=== PATIENT | male | born 1965 | race Caucasian/White ===

== ENCOUNTER 2017-05-21 07:25 | Emergency (ER) | payer OTHER ==
[~2017-05-21] VITALS: Ht 165.1 cm; Wt 100.0 kg
[2017-05-21 07:32] VITALS: BP 126/91
[2017-05-21] MEDS ORDERED: IBUPROFEN 600MG TABLET PO ONE (08:30)
[2017-05-21 09:33] LABS: CLARITY URINE CLEAR (CLEAR); COLOR URINE YELLOW (YELLOW); GLUCOSE URINE NEGATIVE (NEGATIVE); KETONES URINE NEGATIVE (NEGATIVE); LEUKOCYTE ESTERASE URINE NEGATIVE (NEGATIVE); NITRITE URINE NEGATIVE (NEGATIVE); OCCULT BLOOD URINE NEGATIVE (NEGATIVE); PH URINE 5.5 (4.5-8.0); PROTEIN URINE NEGATIVE (NEGATIVE); SPECIFIC GRAVITY URINE 1.014 (1.005-1.030); UROBILINOGEN URINE 0.2 E.U./dL (0.2-1.0)
== END 2017-05-21 10:36 | disposition home or self-care (01) ==
LOC: ER 07:44
DX: M94.0 Chondrocostal junction syndrome [Tietze] (principal); R07.89 Other chest pain
CPT/HCPCS: 71101; 81003; 99285